=== PATIENT | female | born 1970 | race Caucasian/White ===

== ENCOUNTER 2016-10-28 12:10 | Inpatient (IN) | payer MEDICAID ==
[~2016-10-28] VITALS: Ht 152.4 cm; Wt 48.7 kg
[2016-10-28] MEDS ORDERED: SODIUM CHLORIDE 0.9% 1,000ML IVBOLUS ONE (13:00)
[2016-10-28 13:28] LABS: PH, VENOUS 7.374 pH (7.320-7.420)
[2016-10-28 13:41] LABS: ASPARTATE AMINO TRANSFERASE 86 U/L (15-37); BLOOD UREA NITROGEN 10 mg/dL (7-18)
[2016-10-28] MEDS ORDERED: metFORMIN 500 MG TABLET PO ONE (14:09)
[2016-10-28] MEDS ORDERED: INSULIN REGULAR 100 UNITS/ML, 3ML VIAL SQ-INSULIN ONE (14:30)
[2016-10-28] MEDS ORDERED: INSULIN SINGLE DOSE, ER SQ-INSULIN ONE (14:37)
[2016-10-28] MEDS ORDERED: INSULIN REGULAR 100 UNITS/ML, 3ML VIAL ONE (14:39)
[2016-10-28] MEDS ORDERED: ONDANSETRON 2MG/ML, 2ML ONE (14:54)
[2016-10-28] MEDS ORDERED: ONDANSETRON 2MG/ML, 2ML IVPush ONE (15:30)
[2016-10-28] MEDS ORDERED: DEXTROSE 4 GM TAB.CHEW PO PRN (16:00)
[2016-10-28] MEDS ORDERED: POLYETHYLENE GLYCOL 17 GM PACKET PO PRN (16:00)
[2016-10-28] MEDS ORDERED: GLUCAGON 1 MG IM PRN (16:00)
[2016-10-28] MEDS ORDERED: DEXTROSE 50%, 50ML SYRINGE IVPush PRN (16:00)
[2016-10-28] MEDS ORDERED: BISACODYL 10 MG SUPP PR PRN (16:00)
[2016-10-28] MEDS ORDERED: ONDANSETRON ODT 4 MG PO PRN (16:00)
[2016-10-28] MEDS ORDERED: DOCUSATE 100 MG CAPSULE PO PRN (16:00)
[2016-10-28] MEDS: SODIUM CHLORIDE 0.9% 1,000 ML IV SCH (16:30)
[2016-10-28 16:34] VITALS: BP 106/70
[2016-10-28] MEDS: INSULIN ASPART 100 UNITS/ML, PEN SQ-INSULIN SCH ×2 (17:04→21:04)
[2016-10-28] MEDS: HEPARIN 5,000 UNITS/ML, 1ML SQ SCH ×2 (17:04→20:59)
[2016-10-28 18:40] LABS: HEPATITIS C VIRUS ANTIBODY Reactive (Nonreactive)
[2016-10-28 19:12] LABS: BLOOD UREA NITROGEN 6 mg/dL (7-18)
[2016-10-28 19:21] VITALS: BP 119/71
[2016-10-28] MEDS ORDERED: LORazepam 0.5MG TABLET PO ONE (21:00)
[2016-10-28] MEDS: NICOTINE 7 MG/24 HR PATCH.TD24 TD SCH (21:03)
[2016-10-28] MEDS: INSULIN DETEMIR 100 UNITS/ML, PEN SQ-INSULIN SCH (21:04)
[2016-10-28] MEDS: SODIUM CHLORIDE FLUSH 10ML SYR IVF SCH (21:05)
[2016-10-29] MEDS: SODIUM CHLORIDE 0.9% 1,000 ML IV SCH ×4 (00:35→23:55)
[2016-10-29] MEDS: HEPARIN 5,000 UNITS/ML, 1ML SQ SCH ×3 (00:46→21:00)
[2016-10-29 01:33] VITALS: BP 118/76
[2016-10-29 04:41] LABS: ASPARTATE AMINO TRANSFERASE 87 U/L (15-37); BLOOD UREA NITROGEN 9 mg/dL (7-18)
[2016-10-29] MEDS: ACETAMINOPHEN 325 MG TABLET PO PRN ×3 (06:41→16:32)
[2016-10-29 07:30] VITALS: BP 138/87
[2016-10-29] MEDS: SODIUM CHLORIDE FLUSH 10ML SYR IVF SCH ×2 (07:41→19:51)
[2016-10-29] MEDS: INSULIN DETEMIR 100 UNITS/ML, PEN SQ-INSULIN SCH ×2 (07:41→19:50)
[2016-10-29] MEDS: INSULIN ASPART 100 UNITS/ML, PEN SQ-INSULIN SCH ×4 (07:41→19:51)
[2016-10-29] MEDS ORDERED: POTASSIUM CHLORIDE 20 MEQ TAB.ER.PRT PO ONE (08:00)
[2016-10-29] MEDS: metFORMIN 500 MG TABLET PO SCH (09:19)
[2016-10-29] MEDS: NICOTINE 7 MG/24 HR PATCH.TD24 TD SCH (11:59)
[2016-10-29 14:08] VITALS: BP 139/81
[2016-10-29] MEDS: ONDANSETRON 2MG/ML, 2ML IVPush PRN (19:40)
[2016-10-29 19:55] VITALS: BP 122/79
[2016-10-29] MEDS ORDERED: GLUCAGON 1 MG IM PRN (20:00)
[2016-10-29] MEDS ORDERED: DEXTROSE 50%, 50ML SYRINGE IVPush PRN (20:00)
[2016-10-29] MEDS ORDERED: POLYETHYLENE GLYCOL 17 GM PACKET PO PRN (20:00)
[2016-10-29] MEDS ORDERED: DEXTROSE 4 GM TAB.CHEW PO PRN (20:00)
[2016-10-29] MEDS ORDERED: DOCUSATE 100 MG CAPSULE PO PRN (20:00)
[2016-10-30] MEDS ORDERED: ZOLPIDEM 5MG TABLET PO ONE (00:30)
[2016-10-30 01:01] VITALS: BP 130/72
[2016-10-30 02:12] VITALS: BP 121/73
[2016-10-30] MEDS: HEPARIN 5,000 UNITS/ML, 1ML SQ SCH (04:11)
[2016-10-30 04:50] LABS: BLOOD UREA NITROGEN 11 mg/dL (7-18)
[2016-10-30 04:54] LABS: ASPARTATE AMINO TRANSFERASE 266 U/L (15-37)
[2016-10-30 07:14] VITALS: BP 148/82
[2016-10-30] MEDS: SODIUM CHLORIDE 0.9% 1,000 ML IV SCH (07:45)
[2016-10-30] MEDS: metFORMIN 500 MG TABLET PO SCH (07:47)
[2016-10-30] MEDS: INSULIN DETEMIR 100 UNITS/ML, PEN SQ-INSULIN SCH (07:50)
[2016-10-30] MEDS: INSULIN ASPART 100 UNITS/ML, PEN SQ-INSULIN SCH ×2 (07:50→11:45)
[2016-10-30] MEDS: SODIUM CHLORIDE FLUSH 10ML SYR IVF SCH (07:51)
[2016-10-30] MEDS: ONDANSETRON 2MG/ML, 2ML IVPush PRN (07:52)
[2016-10-30] MEDS ORDERED: POTASSIUM CHLORIDE 20 MEQ TAB.ER.PRT PO ONE (09:30)
[2016-10-30] MEDS ORDERED: METF500T PO (09:58)
[2016-10-30] MEDS ORDERED: INSU100I28 SQ-INSULIN (09:58)
[2016-10-30] MEDS ORDERED: INSU100I18 SQ-INSULIN (09:58)
[2016-10-30] MEDS ORDERED: PNEUMOCOCCAL 23 VACCINE IM-VACC ONE (12:30)
== END 2016-10-30 13:35 | disposition home or self-care (01) | DRG 637 ==
LOC: ED 15:16 → EDIP 15:45 → 3NW 16:23
PROVIDERS: ADMIT Internal Medicine; ATTEND Internal Medicine
DX: E11.65 Type 2 diabetes mellitus with hyperglycemia (principal); N17.0 Acute kidney failure with tubular necrosis; E11.00 Type 2 diabetes mellitus with hyperosmolarity without nonketotic hyperglycemic-hyperosmolar coma (NKHHC); E87.1 Hypo-osmolality and hyponatremia; E86.0 Dehydration; E87.6 Hypokalemia; F17.210 Nicotine dependence, cigarettes, uncomplicated; F31.9 Bipolar disorder, unspecified; G89.29 Other chronic pain; M79.7 Fibromyalgia; D69.6 Thrombocytopenia, unspecified; E11.42 Type 2 diabetes mellitus with diabetic polyneuropathy; B19.20 Unspecified viral hepatitis C without hepatic coma; Z20.5 Contact with and (suspected) exposure to viral hepatitis; K58.0 Irritable bowel syndrome with diarrhea; Z83.3 Family history of diabetes mellitus; Z85.41 Personal history of malignant neoplasm of cervix uteri; Z91.19 Patient's noncompliance with other medical treatment and regimen; Z90.49 Acquired absence of other specified parts of digestive tract; Z90.711 Acquired absence of uterus with remaining cervical stump; Z88.8 Allergy status to other drugs, medicaments and biological substances; Z79.4 Long term (current) use of insulin; Z79.84 Long term (current) use of oral hypoglycemic drugs
CPT/HCPCS: 36415; 76700; 80048; 80053; 80074; 81001; 82010; 82803; 82947; 82962; 85025; 87086; 87521; 96361; 96372; 96374; J1815; J2405; J7030

== ENCOUNTER 2016-12-02 11:32 | Emergency (ER) | payer MEDICAID ==
[~2016-12-02] VITALS: Ht 152.4 cm; Wt 52.8 kg
[~2016-12-02 11:32] MED LIST: INSU100I18 SQ-INSULIN; INSU100I28 SQ-INSULIN; METF500T PO
[2016-12-02 11:34] VITALS: BP 112/68
[2016-12-02] MEDS ORDERED: HYDROcodone/APAP 5/325 TABLET ONE (12:11)
[2016-12-02] MEDS ORDERED: HYDROcodone/APAP 5/325 TABLET PO ONE (12:30)
== END 2016-12-02 12:14 | disposition home or self-care (01) ==
LOC: ED 11:58
DX: E11.40 Type 2 diabetes mellitus with diabetic neuropathy, unspecified (principal); E11.65 Type 2 diabetes mellitus with hyperglycemia
CPT/HCPCS: 99283

== ENCOUNTER 2016-12-17 18:04 | Emergency (ER) | payer MEDICAID ==
[~2016-12-17] VITALS: Ht 152.4 cm; Wt 52.8 kg
[2016-12-17] MEDS ORDERED: GABA300C10 PO (18:45)
[2016-12-17] MEDS ORDERED: HYDROmorphone 1 MG/ML, 1ML IM ONE (19:30)
[2016-12-17] MEDS ORDERED: KETOROLAC 30 MG/1 ML IM ONE (19:30)
[2016-12-17] MEDS ORDERED: HYDROmorphone 1 MG/ML, 1ML ONE (19:41)
[2016-12-17] MEDS ORDERED: KETOROLAC 30 MG/1 ML ONE ×2 (19:42→19:45)
[2016-12-17] MEDS ORDERED: ONDANSETRON ODT 8 MG ONE (19:45)
[2016-12-17] MEDS ORDERED: ONDANSETRON ODT 8 MG PO ONE (20:00)
[2016-12-17 20:01] VITALS: BP 114/60
== END 2016-12-17 20:03 | disposition home or self-care (01) ==
LOC: ED 19:36
DX: M79.1 Myalgia (principal); G89.29 Other chronic pain; E11.65 Type 2 diabetes mellitus with hyperglycemia; F17.200 Nicotine dependence, unspecified, uncomplicated; Z90.49 Acquired absence of other specified parts of digestive tract
CPT/HCPCS: 96372; 99284; J1170; J1885; Q0162

== ENCOUNTER 2017-02-10 18:33 | Emergency (ER) | payer MEDICAID ==
[~2017-02-10] VITALS: Ht 152.4 cm; Wt 54.3 kg
[~2017-02-10 18:33] MED LIST changes: +GABA300C10 PO
[2017-02-10 18:39] VITALS: BP 102/68
[2017-02-10] MEDS ORDERED: ONDANSETRON ODT 4 MG ONE (19:29)
[2017-02-10] MEDS ORDERED: HYDROcodone/APAP 5/325 TABLET ONE (19:29)
[2017-02-10] MEDS ORDERED: IBUPROFEN 200 MG TABLET ONE (19:29)
[2017-02-10] MEDS ORDERED: IBUPROFEN 200 MG TABLET PO ONE (19:30)
[2017-02-10] MEDS ORDERED: KETOROLAC 30 MG/1 ML IM ONE (19:30)
[2017-02-10] MEDS ORDERED: ONDANSETRON ODT 4 MG PO ONE (19:30)
[2017-02-10] MEDS ORDERED: HYDROcodone/APAP 5/325 TABLET PO ONE (19:30)
== END 2017-02-10 19:43 | disposition home or self-care (01) ==
LOC: ED 19:35
DX: M79.1 Myalgia (principal); G89.4 Chronic pain syndrome; E11.65 Type 2 diabetes mellitus with hyperglycemia; Z90.49 Acquired absence of other specified parts of digestive tract; F17.200 Nicotine dependence, unspecified, uncomplicated
CPT/HCPCS: 99284; Q0162

== ENCOUNTER 2017-02-23 12:33 | Emergency (ER) | payer MEDICAID ==
[~2017-02-23] VITALS: Ht 152.4 cm; Wt 54.7 kg
[2017-02-23] MEDS ORDERED: SODIUM CHLORIDE 0.9% 1,000 ML IV ONE (13:19)
[2017-02-23] MEDS ORDERED: ONDANSETRON 2MG/ML, 2ML IVPush ONE (13:30)
[2017-02-23] MEDS ORDERED: MORPHINE SULFATE 4 MG/ML, 1ML IVPush PRN (13:30)
[2017-02-23] MEDS ORDERED: SODIUM CHLORIDE 0.9% 1,000ML IVBOLUS ONE (13:30)
[2017-02-23] MEDS ORDERED: ONDANSETRON 2MG/ML, 2ML ONE (13:30)
[2017-02-23] MEDS ORDERED: MORPHINE SULFATE 4 MG/ML, 1ML ONE (13:30)
[2017-02-23] MEDS ORDERED: KETOROLAC 30 MG/1 ML ONE (13:30)
[2017-02-23] MEDS ORDERED: KETOROLAC 30 MG/1 ML IVPush ONE (13:30)
[2017-02-23 14:15] LABS: RAPID INFLUENZA A Negative (Negative); RAPID INFLUENZA B Negative (Negative)
[2017-02-23 14:20] LABS: HEMATOCRIT 41.3 % (34.6-47.8); WHITE BLOOD COUNT 13.6 x10^3/uL (3.4-10)
[2017-02-23] MEDS ORDERED: OXYcodone/APAP 5/325MG TABLET ONE (14:27)
[2017-02-23] MEDS ORDERED: KETOROLAC 30 MG/1 ML IM ONE (14:30)
[2017-02-23] MEDS ORDERED: OXYcodone/APAP 5/325MG TABLET PO ONE (14:30)
[2017-02-23 14:41] LABS: BLOOD UREA NITROGEN 10 mg/dL (7-18)
[2017-02-23 14:44] LABS: ASPARTATE AMINO TRANSFERASE 5 U/L (15-37)
[2017-02-23 15:46] VITALS: BP 108/62
== END 2017-02-23 16:42 | disposition home or self-care (01) ==
LOC: ED 13:18
DX: B34.9 Viral infection, unspecified (principal); E11.65 Type 2 diabetes mellitus with hyperglycemia; E11.40 Type 2 diabetes mellitus with diabetic neuropathy, unspecified
CPT/HCPCS: 36415; 71020; 80053; 81001; 83690; 85025; 87400; 96361; 96374; 96375; 99285; J1885; J2405; J7030

== ENCOUNTER 2017-03-04 19:36 | Emergency (ER) | payer MEDICAID ==
[~2017-03-04] VITALS: Ht 152.4 cm; Wt 53.0 kg
[2017-03-04] MEDS ORDERED: KETOROLAC 30 MG/1 ML IM ONE (20:30)
[2017-03-04] MEDS ORDERED: KETOROLAC 30 MG/1 ML ONE (20:30)
[2017-03-04] MEDS ORDERED: OXYcodone/APAP 5/325MG TABLET PO ONE (20:30)
[2017-03-04] MEDS ORDERED: OXYcodone/APAP 5/325MG TABLET ONE (20:31)
[2017-03-04 21:56] VITALS: BP 131/74
== END 2017-03-04 21:58 | disposition home or self-care (01) ==
LOC: ED 20:36
DX: M25.511 Pain in right shoulder (principal); M79.601 Pain in right arm; R07.89 Other chest pain; M79.7 Fibromyalgia; E11.40 Type 2 diabetes mellitus with diabetic neuropathy, unspecified
CPT/HCPCS: 71010; 93005; 96372; 99284; J1885

== ENCOUNTER 2017-07-03 18:30 | Emergency (ER) | payer MEDICAID ==
[~2017-07-03] VITALS: Ht 154.9 cm; Wt 57.5 kg
[2017-07-03 18:54] VITALS: BP 171/64
[2017-07-03] MEDS ORDERED: TRAZ100T15 PO (19:21)
[2017-07-03] MEDS ORDERED: BUSP5TAB2 PO (19:21)
[2017-07-03] MEDS ORDERED: LISI2.5T PO (19:22)
[2017-07-03] MEDS ORDERED: ATOR-2 PO (19:22)
[2017-07-03] MEDS ORDERED: HYDROmorphone 1 MG/ML, 1ML IM ONE (19:30)
[2017-07-03] MEDS ORDERED: ONDANSETRON ODT 4 MG PO ONE (19:30)
[2017-07-03] MEDS ORDERED: ONDANSETRON ODT 4 MG ONE (19:34)
[2017-07-03] MEDS ORDERED: HYDROmorphone 2 MG/ML, 1ML ONE (19:34)
== END 2017-07-03 21:42 | disposition home or self-care (01) ==
LOC: ED 21:36
DX: S82.141A Displaced bicondylar fracture of right tibia, initial encounter for closed fracture (principal); I10 Essential (primary) hypertension; E11.65 Type 2 diabetes mellitus with hyperglycemia; Z90.49 Acquired absence of other specified parts of digestive tract; W07.XXXA Fall from chair, initial encounter; Y93.89 Activity, other specified; Y92.89 Other specified places as the place of occurrence of the external cause; Y99.8 Other external cause status
CPT/HCPCS: 29505; 73564; 73700; 96372; 99284; J1170; Q0162